=== PATIENT | male | born 1990 | race Hispanic/Latino ===

== ENCOUNTER 2022-02-07 02:33 | Emergency (ER) | payer SELFPAY ==
[~2022-02-07] VITALS: Ht 165.1 cm; Wt 70.0 kg
[2022-02-07 03:24] LABS: ALKALINE PHOSPHATASE 111 u/l (38-126); BILIRUBIN, TOTAL 0.4 mg/dL (0.0-1.4); BUN 17 mg/dL (9-20); BUN/CREATININE RATIO 22 (12-20 (CALC)); CARBON DIOXIDE 23 mmol/l (22-30); CHLORIDE 102 mmol/l (95-108); CREATININE 0.8 mg/dL (0.7-1.3); GFR FOR AFR.AMER. > 60 ML/MIN (>=60 (CALC)); GFR OTHER RACES > 60 ML/MIN (>=60 (CALC)); SGOT/AST 31 u/l (17-59); SODIUM 139 mmol/l (137-146); TOTAL PROTEIN 7.5 g/dL (6.3-8.2)
[2022-02-07 03:26] LABS: ANION GAP 18 (6-22 (CALC))
[2022-02-07 03:29] LABS: HEMATOCRIT 39.9 % (39.0-50.0); HEMOGLOBIN 13.6 g/dl (14.0-18.0); IMMATURE GRANULOCYTES 0.2 % (0.0-5.0); MEAN CORPUSCULAR HGB 32.4 pG CALC (26.0-32.0); MEAN CORPUSCULAR HGB CONC 34.1 g/dL CAL (32.0-36.0); NEUT# 4.57 thou/uL (1.82-7.42); RED BLOOD COUNT 4.2 mill/uL (4.70-6.10); RED CELL DISTRI WIDTH 12.6 % (11.5-15.5)
[2022-02-07] MEDS ORDERED: NAPROXEN500 MG PO (06:11)
[2022-02-07 07:12] VITALS: BP 125/75
== END 2022-02-07 07:13 | disposition home or self-care (01) | DRG 125 ==
LOC: ED 02:33
PROVIDERS: Emergency Medicine
PROC: 0HQ1XZZ Repair Face Skin, External Approach (ICD-10-PCS; principal; 2022-02-07)
PROC: 2W3EX1Z Immobilization of Right Hand using Splint (ICD-10-PCS; 2022-02-07)
DX: S01.111A Laceration without foreign body of right eyelid and periocular area, initial encounter (principal); S62.306A Unspecified fracture of fifth metacarpal bone, right hand, initial encounter for closed fracture; Y04.0XXA Assault by unarmed brawl or fight, initial encounter; Y92.009 Unspecified place in unspecified non-institutional (private) residence as the place of occurrence of the external cause; F10.10 Alcohol abuse, uncomplicated; Y90.6 Blood alcohol level of 120-199 mg/100 ml

== ENCOUNTER 2022-06-10 17:45 | Emergency (ER) | payer SELFPAY ==
[~2022-06-10] VITALS: Ht 165.1 cm; Wt 59.0 kg
[~2022-06-10 17:45] MED LIST: NAPROXEN500 MG PO
[2022-06-10 18:05] VITALS: BP 116/76
[2022-06-10 18:30] VITALS: BP 116/79
[2022-06-10] MEDS ORDERED: MAXITROL0.1 % OS (18:48)
[2022-06-10 19:02] VITALS: BP 116/79
== END 2022-06-10 19:07 | disposition home or self-care (01) | DRG 125 ==
LOC: ED 17:45
DX: S05.02XA Injury of conjunctiva and corneal abrasion without foreign body, left eye, initial encounter (principal); X58.XXXA Exposure to other specified factors, initial encounter

== ENCOUNTER 2023-05-16 20:34 | Emergency (ER) | payer SELFPAY ==
[~2023-05-16] VITALS: Ht 165.1 cm; Wt 70.0 kg
[~2023-05-16 20:34] MED LIST changes: +MAXITROL0.1 % OS; +MECLIZINE 2525 MG PO
[2023-05-16] MEDS ORDERED: ACETAMINOPHEN 500 MG TAB PO ONE (21:40)
[2023-05-16] MEDS ORDERED: IBUPROFEN 600 MG/TAB PO ONE (21:45)
[2023-05-16 22:04] VITALS: BP 124/81
== END 2023-05-16 22:04 | disposition home or self-care (01) | DRG 125 ==
LOC: ED 20:34
DX: S05.8X2A Other injuries of left eye and orbit, initial encounter (principal); H11.32 Conjunctival hemorrhage, left eye; H53.9 Unspecified visual disturbance; Y04.0XXA Assault by unarmed brawl or fight, initial encounter; F17.200 Nicotine dependence, unspecified, uncomplicated

== ENCOUNTER 2023-11-23 19:54 | Emergency (ER) | payer SELFPAY ==
[~2023-11-23] VITALS: Ht 165.1 cm; Wt 64.0 kg
[2023-11-23] MEDS ORDERED: NAPROXEN 250 MG/TAB PO ONE (20:00)
[2023-11-24] VITALS: BP 118/76
== END 2023-11-24 | disposition home or self-care (01) | DRG 556 ==
LOC: ED 19:54
DX: M79.604 Pain in right leg (principal); M79.89 Other specified soft tissue disorders; Y04.2XXA Assault by strike against or bumped into by another person, initial encounter; Z72.0 Tobacco use